=== PATIENT | male | born 1975 | race Caucasian/White ===

== ENCOUNTER 2024-04-22 10:05 | Emergency (ER) | payer SELFPAY ==
--- OUTSIDE RECORDS SUMMARY | 2024-04-22 10:08 | XMS REPORT | Continuity of Care Document ---
Author Name Unknown Address [address] [facility]. [address] [place] [address] [facility] thconnect Address [address] [facility]. [address] [place] [address] Care Team Providers Care Welfare Adviser Name Role Phone PCP, PATIENT DOES NOT HAVE A Primary Care Physic clau Unavailable Conrad FRANCO Attending Clinician Unavailable Allergies, Adverse Reactions, Alerts Allergy Name Allergy Type Status Severity Reaction(s) Onset Date Inactive Date Treating Clinician Comments Source [facility] Drug Class Active Anaphylaxis 2016-06 00:00: 00 [facility] Encounters Start Date/Time End Date/Time Encounter Type Admission Type Attending Clinicians Care Facility Care Department Encounter ID Source 2017-05-19 16:07:12 2017-05-19 20:16:00 Emergency X Conrad FRANCO [facility] ERT [id number] [facility]
[2024-04-22] MEDS ORDERED: GABAPENTIN 300 MG CAP ONE (10:25)
[2024-04-22] MEDS ORDERED: KETOROLAC 30 MG/ML INJ ONE (10:25)
--- NOTE | 2024-04-22 11:02 | ER ---
Nurse's Notes [facility] Name: Adrián Dennis Jr Age: 48 yrs Sex: Male : 1975 Arrival Date: 04/22/2024 Time: 10:05 Bed 17 Private MD: Diagnosis: Dental caries, unspecified Presentation: 04/22 10:15 Chief complaint: Patient states: Upper jaw tooth pain. Coronavirus screen: Client ll1 denies travel out of the [place] in the last 14 days. At this time, the client does not indicate any symptoms associated with coronavirus-19. Ebola Screen: Patient denies travel to an Ebola-affected area in the 21 days before illness onset. Initial Sepsis Screen: Does the patient meet any 2 criteria? No. Patient's initial sepsis screen is negative. Does the patient have a suspected source of infection? No. Patient's initial sepsis screen is negative. Risk Assessment: Do you want to hurt yourself or someone else? Patient reports no desire to harm self or others. 10:15 Method Of Arrival: Ambulatory 1 10:15 Acuity: DAI 4 ll1 10:17 Onset of symptoms was April 21, 2024. 1 Historical: - Allergies: 10:16 PENICILLINS; ll1 10:16 all cillins; ll1 - PMHx: 10:18 Diverticulitis; ll1 - PSHx: 10:18 None; ll1 - Immunization history:: Adult Immunizations up to date. - Infectious Disease History:: Denies. - Social history:: Smoking status: Patient reports the use of cigarette tobacco products, smokes one pack cigarettes per day. - Family history:: not pertinent. - Hospitalizations: : No recent hospitalization is reported. Screenin:18 [facility] ED Fall Risk Assessment (Adult) History of falling in the last 3 months, db including since admission No falls in past 3 months (0 pts) Confusion or Disorientation No (0 pts) Intoxicated or Sedated No (0 pts) Impaired Gait No (0 pts) Mobility Assist Device Used No (0 pt) Altered Elimination No (0 pt) Score/Fall Risk Level 0 - 2 = Low Risk Oriented to surroundings, Maintained a safe environment. Abuse screen: Denies threats or abuse. Denies injuries from another. Nutritional screening: No deficits noted. Nutritional screening: No deficits noted. Tuberculosis screening: No symptoms or risk factors identified. Assessment: 11:18 Reassessment: Patient appears in no apparent distress at this time. Patient and/or db family updated on plan of care and expected duration. Pain level reassessed. Patient is alert, oriented x 3, equal unlabored respirations, skin warm/dry/pink. General: Appears in no apparent distress. comfortable, Behavior is calm, cooperative. Pain: Complains of pain in mouth. Neuro: Level of Consciousness is awake, alert, obeys commands, Oriented to person, place, time, situation. Respiratory: Airway is patent Respiratory effort is even, unlabored, Respiratory pattern is regular, symmetrical. EENT: Dental caries noted in MULTIPLE. Vital Signs: 10:17 BP 149 / 103; Pulse 78; Resp 17; Temp 98.2; Pulse Ox 99% ; Weight 80.29 kg; Height 6 ll1 ft. 0 in. ; Pain 10/10; 10:17 Body Mass Index 24.01 (80.29 kg, 182.88 cm) ll1 10:17 Pain Scale: Adult ll1 ED Course: 10:07 Patient arrived in ED. im 10:09 Navid Barrios MD is Attending Physician. rn 10:16 Triage completed. ll1 10:16 Arm band placed on Patient placed in an exam room, on a stretcher. ll1 10:20 Janneth Bai, JOEL is Primary Nurse. db 11:18 Patient has correct armband on for positive identification. Bed in low position. Call db light in reach. Side rails up X 1. Provided Education on: DISCHARGE. Pillow given. 11:18 No provider procedures requiring assistance completed. Patient did not have IV access db during this emergency room visit. Administered Medications: 10:48 Drug: Ketorolac IM 30 mg IM once Route: IM; Site: right deltoid; db 11:20 Follow up: Response: No adverse reaction db 10:48 Drug: Gabapentin PO 300 mg PO once Route: PO; db 11:00 Follow up: Response: No adverse reaction db Medication: 11:18 VIS not applicable for this client. db Outcome: 11:01 Discharge ordered by . rn 11:18 Discharged to home ambulatory, db 11:18 Condition: stable 11:18 Discharge instructions given to patient, Instructed on discharge instructions, follow up and referral plans. Prescriptions given X 2, 11:20 Patient left the ED. db Signatures: Navid Barrios MD MD rn Lewis, Lynsay, RN RN 1 Janneth Bai RN RN db Sumi Banda Corrections: (The following items were deleted from the chart) 10:18 10:16 Social history: Smoking status: Patient denies any tobacco usage or history of. ll1 ll1 10:19 10:17 Pulse 78bpm; Resp 17bpm; Pulse Ox 99%; 80.29 kg; Height 6 ft. 0 in.; BMI: 24.0; ll1 Pain 03/25, Adult; ll1
--- NOTE | 2024-04-22 11:02 | EDPHYS ---
Physician Documentation [facility] Name: Adrián Dennis Jr Age: 48 yrs Sex: Male : 1975 Arrival Date: 04/22/2024 Time: 10:05 Bed 17 Private MD: ED Physician Navid Barrios HPI: 04/22 10:59 This 48 yrs old Male presents to ER via Ambulatory with complaints of Toothache. rn 10:59 The patient presents with pain. Onset: The symptoms/episode began/occurred yesterday. rn Modifying factors: The symptoms are alleviated by nothing, the symptoms are aggravated by chewing, food. Severity of symptoms: At their worst the symptoms were moderate, in the emergency department the symptoms are unchanged. The patient has experienced similar episodes in the past. Patient reports pain to right upper tooth. Has chronic dental problems but worse yesterday after eating candy. Has not seen a dentist. No fever or chills.. Historical: - Allergies: 10:16 PENICILLINS; ll1 10:16 all cillins; ll1 - PMHx: 10:18 Diverticulitis; ll1 - PSHx: 10:18 None; ll1 - Immunization history:: Adult Immunizations up to date. - Infectious Disease History:: Denies. - Social history:: Smoking status: Patient reports the use of cigarette tobacco products, smokes one pack cigarettes per day. - Family history:: not pertinent. - Hospitalizations: : No recent hospitalization is reported. ROS: 10:59 Constitutional: Negative for fever, chills, and weight loss, ENT: Positive for dental rn pain Exam: 10:59 Constitutional: This is a well developed, well nourished patient who is awake, alert, rn and in no acute distress. ENT: Poor dentition with right upper teeth cavities, no evidence of oral abscess or gingival swelling noted. Vital Signs: 10:17 BP 149 / 103; Pulse 78; Resp 17; Temp 98.2; Pulse Ox 99% ; Weight 80.29 kg; Height 6 ll1 ft. 0 in. ; Pain 10; 10:17 Body Mass Index 24.01 (80.29 kg, 182.88 cm) ll1 10:17 Pain Scale: Adult ll1 MDM: 10:09 Medical Screening Exam initiated rn 10:59 Differential diagnosis: dental caries, dental abscess. Data reviewed: vital signs, rn nurses notes, and as a result, I will discharge patient. Counseling: I had a detailed discussion with the patient and/or guardian regarding the historical points, exam findings, and any diagnostic results supporting the discharge/admit diagnosis, the need for outpatient follow up, to return to the emergency department if symptoms worsen or persist or if there are any questions or concerns that arise at home. Special discussion: I discussed with the patient/guardian in detail that at this point there is no indication for admission to the hospital. It is understood, however, that if the symptoms persist or worsen the patient needs to return immediately for re-evaluation. Based on the history and exam findings, there is no indication for further emergent testing or inpatient evaluation. I discussed with the patient/guardian the need to see a dentist for further evaluation of the symptoms. Administered Medications: 10:48 Drug: Ketorolac IM 30 mg IM once Route: IM; Site: right deltoid; db 11:20 Follow up: Response: No adverse reaction db 10:48 Drug: Gabapentin PO 300 mg PO once Route: PO; db 11:00 Follow up: Response: No adverse reaction db Disposition Summary: 04/22/24 11:01 Discharge Ordered Notes: Location: Home rn Problem: an acute exacerbation rn Symptoms: have improved rn Condition: Stable rn Diagnosis - Dental caries, unspecified rn Followup: rn - With: Private Physician - When: As needed - Reason: Recheck today's complaints, Re-evaluation by your physician Discharge Instructions: - Discharge Summary Sheet rn - Dental Caries, Adult rn - Dental Pain rn Forms: - Medication Reconciliation Form rn - Antibiotic automatic pattern edger - Prescription Opioid Use rn - Patient Portal Instructions rn - Leadership Thank You Letter rn Prescriptions: - Clindamycin HCl 300 mg Oral Capsule - take 1 capsule ORAL route every 6 hours for 10 days; 40 capsule; Refills: 0, rn Product Selection Permitted - Tramadol 50 mg Oral Tablet - take 1 tablet ORAL route every 8 hours as needed; 12 tablet; Refills: 0, rn Product Selection Permitted Signatures: Nvaid Barrios MD MD rn Lewis, Lynsay, RN RN ll1 Janneth Bai RN RN db Corrections: (The following items were deleted from the chart) 10:18 10:16 Social history: Smoking status: Patient denies any tobacco usage or history of. ll1 ll1
[2024-04-22 11:28] VITALS: BP 149/103; TEMP 98.2; O2SAT 99
== END 2024-04-22 11:20 | disposition home or self-care (01) ==
LOC: ER 10:05
DX: K02.9 Dental caries, unspecified (principal)
CPT/HCPCS: 96372; 99284

== ENCOUNTER 2025-01-28 10:51 | Inpatient (IN) | payer SELFPAY ==
--- OUTSIDE RECORDS SUMMARY | 2025-01-28 10:54 | XMS REPORT | Continuity of Care Document ---
Author Name Unknown Address [address] [facility] [address] [place] [address] [facility] Address [address] [facility]. [address] [place] [address] Care Team Providers Care Otr Owner Operator Name Role Phone PCP, PATIENT DOES NOT HAVE A Primary Care Physic clau Unavailable Conrad FRANCO Attending Clinician Unavailable Allergies, Adverse Reactions, Alerts Allergy Name Allergy Type Status Severity Reaction(s) Onset Date Inactive Date Treating Clinician Comments Source [facility] INS Drug Class Active Anaphylaxis 2016-06 00:00: 00 [facility] Encounters Start Date/Time End Date/Time Encounter Type Admission Type Attending Clinicians Care Facility Care Department Encounter ID Source 2017-05-19 16:07:12 2017-05-19 20:16:00 Emergency X Conrad FRANCO [facility] ERT [id number] [facility]
[2025-01-28] MEDS ORDERED: ONDANSETRON 4 MG/2 ML VIAL ONE (10:57)
[2025-01-28] MEDS ORDERED: ASPIRIN 81 MG CHEWABLE TABLET ONE (10:57)
[2025-01-28] MEDS ORDERED: MORPHINE 4 MG/ML SYR ONE (10:57)
[2025-01-28] MEDS ORDERED: CLOPIDOGREL 75 MG TABLET ONE ×2 (11:32→13:57)
[2025-01-28] MEDS ORDERED: HEPARIN 5000 UNIT/ML 1 ML VIAL ONE ×2 (11:32→13:57)
[2025-01-28 11:52] LABS: Absolute Lymphocytes (CBC) 2.7 K/uL (0.7-4.9); Hematocrit 45.2 % (39.6-49.0); Hemoglobin 15.6 g/dL (13.6-17.9); MCH 32.1 pg (27.0-35.0); MCHC 34.5 g/dL (32.0-36.0); MCV 93.1 fL (80-100); MPV 8.0 fL (7.6-11.3); Nucleated RBC Absolute Count 0.0 (0-0); Nucleated Red Blood Cells % 0.0 % (0-0); RBC Red Blood Cell Count 4.85 M/uL (4.33-5.43); White Blood Count 9.60 thou/uL (4.3-10.9)
--- NOTE | 2025-01-28 12:05 | RAD REPORT ---
EXAM: Chest Single View HISTORY: 49 years Male CHEST PAIN COMPARISON: No prior exams FINDINGS: LUNGS/PLEURA: The lungs are clear. No pleural effusions or pneumothorax. No pulmonary edema. CARDIAC/MEDIASTINUM: The cardiac silhouette is within normal limits. UPPER ABDOMEN: No significant abnormality. BONES: No acute abnormality. LINES/TUBES/OTHER: N/A IMPRESSION: No evidence of acute cardiopulmonary disease.
[2025-01-28 12:13] LABS: Anion Gap 9.8 mEq/L (5.0-15.0); BUN Blood Urea Nitrogen 16.0 mg/dL (7-18); Glucose Level 98.0 mg/dL (74-106); NT PRO-BNP 68.0 pg/mL (<125); Potassium 3.8 mEq/L (3.5-5.1)
[2025-01-28 12:16] LABS: Troponin High Sensitivity 135.8 pg/mL (<58.9)
[2025-01-28] MEDS ORDERED: HEPARIN/D5W 25,000 UNIT/500 ML BAG IV ONE (12:22)
--- NOTE | 2025-01-28 13:29 | ER ---
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 Coronavirus kc6 screen: At this time, the client does not indicate any symptoms associated with coronavirus-19. Ebola Screen: No symptoms or risks identified at this time. Initial Sepsis Screen: Does the patient meet any 2 criteria? No. Patient's initial sepsis screen is negative. Does the patient have a suspected source of infection? No. Patient's initial sepsis screen is negative. Risk Assessment: Do you want to hurt yourself or someone else? Patient reports no desire to harm self or others. Onset of symptoms was January 28, 2025. 10:58 Method Of Arrival: Wheelchair kc6 10:58 Acuity: DAI 2 kc6 Historical: - Allergies: 10:59 PENICILLINS; kc6 10:59 all cillins; kc6 - Home Meds: 10:59 None [Active]; kc6 - PMHx: 10:59 Diverticulitis; kc6 - PSHx: 10:59 None; kc6 - Immunization history:: Adult Immunizations up to date. - Infectious Disease History:: Denies. - Social history:: Smoking status: Patient reports the use of cigarette tobacco products, smokes two packs cigarettes per day. Screenin:00 [facility] ED Fall Risk Assessment (Adult) History of falling in the last 3 months, kc6 including since admission No falls in past 3 months (0 pts) Confusion or Disorientation No (0 pts) Intoxicated or Sedated No (0 pts) Impaired Gait No (0 pts) Mobility Assist Device Used No (0 pt) Altered Elimination No (0 pt) Score/Fall Risk Level 0 - 2 = Low Risk Oriented to surroundings. Abuse screen: Denies threats or abuse. Denies injuries from another. Nutritional screening: No deficits noted. Tuberculosis screening: No symptoms or risk factors identified. Assessment: 11:00 General: Appears in no apparent distress. uncomfortable, well groomed, well developed, kc6 Behavior is calm, cooperative, appropriate for age. Pain: Complains of pain in anterior aspect of left upper chest and left breast Pain does not radiate. Pain currently is 2 out of 10 on a pain scale. at worst was 10 out of 10 on a pain scale. Quality of pain is described as sharp, Pain began suddenly, 30 min ago. Is intermittent. Neuro: Level of Consciousness is awake, alert, obeys commands, Oriented to person, place, time, situation, Appropriate for age. Cardiovascular: Reports chest pain, Capillary refill < 3 seconds Rhythm is regular. Respiratory: Airway is patent Trachea midline Respiratory effort is even, unlabored, Respiratory pattern is regular, symmetrical. GI: No signs and/or symptoms were reported involving the gastrointestinal system. : No signs and/or symptoms were reported regarding the genitourinary system. EENT: No signs and/or symptoms were reported regarding the EENT system. Derm: No signs and/or symptoms reported regarding the dermatologic system. Skin is intact, is healthy with good turgor, Skin is pink, warm \T\ dry. Musculoskeletal: No signs and/or symptoms reported regarding the musculoskeletal system. Circulation, motion, and sensation intact. Range of motion: intact in all extremities. 11:47 Reassessment: Patient denies pain at this time. Patient states feeling better. Patient kc6 states symptoms have improved. 12:44 Reassessment: Patient appears in no apparent distress at this time. No changes from af3 previously documented assessment. Patient and/or family updated on plan of care and expected duration. Pain level reassessed. Patient is alert, oriented x 3, equal unlabored respirations, skin warm/dry/pink. 13:44 Reassessment: Patient appears in no apparent distress at this time. No changes from kc6 previously documented assessment. Patient and/or family updated on plan of care and expected duration. Pain level reassessed. Patient is alert, oriented x 3, equal unlabored respirations, skin warm/dry/pink. Vital Signs: 10:58 BP 146 / 96; Pulse 80; Resp 16 S; Temp 97.9(O); Weight 79.38 kg (R); Height 6 ft. 0 in. kc6 (R); Pain 2/10; 11:47 BP 139 / 99; Pulse 78; Resp 14 S; Pulse Ox 96% on R/A; Pain 0/10; kc6 12:11 BP 117 / 93; Pulse 69; Resp 15 S; Pulse Ox 96% on R/A; Pain 0/10; kc6 12:44 BP 137 / 94; Pulse 68; Resp 17; Pulse Ox 95% on R/A; Pain 0/10; af3 10:58 Body Mass Index 23.73 (79.38 kg, 182.88 cm) kc6 10:58 Pain Scale: Adult kc6 11:47 Pain Scale: Adult kc6 12:11 Pain Scale: Adult kc6 12:44 Pain Scale: Adult af3 ED Course: 10:53 Patient arrived in ED. al6 10:54 Golden Burks FNP-C [facility]. dr5 10:54 Tonny Wilson MD is Attending Physician. dr5 10:57 Arm band placed on Patient placed in an exam room, on a stretcher. ll1 10:58 Gertrudis Little, JOEL is Primary Nurse. kc6 10:59 Triage completed. kc6 10:59 EKG completed in triage. Results shown to MD. kc6 11:00 Patient has correct armband on for positive identification. Bed in low position. Call [facility] light in reach. Side rails up X 1. panel monitor on. Pulse ox on. NIBP on. Door closed. Noise minimized. Lights dimmed. Pillow given. Verbal reassurance given. 11:00 Patient maintains SpO2 saturation greater than 95% on room air. kc6 11:00 Inserted saline lock: 20 gauge in right antecubital area, using aseptic technique. kc6 Inserted saline lock: 18 gauge in left forearm, using aseptic technique. Blood collected. Flushed with 10 mL NS. 12:01 XRAY Chest (1 view) In Process Unspecified. EDMS 13:28 Prince Velazquez MD is Hospitalizing Provider. dr5 14:05 No provider procedures requiring assistance completed. Patient admitted, IV remains in kc6 place. Administered Medications: 11:12 Drug: Aspirin PO Chewable Tablet 324 mg PO once; 81 mg tablets x 4 Route: PO; kc6 11:50 Follow up: Response: No adverse reaction kc6 11:13 Drug: morphine IVP or IV 4 mg IVP once over 4 mins Route: IVP; Infused Over: 4 mins; kc6 Site: left antecubital; 11:47 Follow up: Response: No adverse reaction; Pain is decreased; RASS: Alert and Calm (0) kc6 11:13 Drug: Ondansetron IVP 4 mg IVP once; over 2 minutes Route: IVP; Site: left antecubital; kc6 11:47 Follow up: Response: No adverse reaction kc6 11:47 Drug: Clopidogrel PO 300 mg PO once Route: PO; kc6 12:20 Follow up: Response: No adverse reaction kc6 11:47 Drug: Heparin (ND-Bolus No thrombolytic) - HEParin IVP 60 units/kg IVP once; Max 5000 kc6 units {Co-Signature: af3 (Adela Wilson RN).} Route: IVP; Site: left antecubital; 12:20 Follow up: Response: No adverse reaction kc6 12:29 Drug: Heparin (ND Drip) 12 units/kg/hr - ([place] [address] units, D5W IV 500 ml) IV at kc6 calculated rate Per protocol; Max initial rate 1000 units/hr {Co-Signature: me1 (Kusum Rogers RN).} Route: IV; Rate: calculated rate; Site: left antecubital; 14:04 Follow up: Response: No adverse reaction; IV Status: Infusion continued upon admission; kc6 IV Intake: 500ml Medication: 14:06 VIS not applicable for this client. kc6 Intake: 14:04 IV: 500ml; Total: 500ml. kc6 Outcome: 13:28 Decision to Hospitalize by Provider. dr5 14:05 Admitted to Patrol Lady accompanied by nurse, via stretcher, on monitor, with chart, kc6 Report called to Cody Alexandra RN 14:05 Condition: stable 14:05 Instructed on the need for admit, 14:06 Patient left the ED. kc6 Signatures: Dispatcher [employer] EDMS Reinaldo Samuels RN RN ll1 Gertrudis Little RN RN kc6 Fry, Ashley, RN RN af3 Golden Burks, MARS-C PIPELAYING FITTER-[id number] Edith Mckeon Ashley RN af3 Kusum Rogers RN me1 Corrections: (The following items were deleted from the chart) 11:48 11:00 Initial lab(s) drawn, by ED staff, sent to lab. kc6 kc6
--- NOTE | 2025-01-28 13:29 | EDPHYS ---
Physician Documentation [facility] Name: Adrián Dennis Jr Age: 49 yrs Sex: Male : 1975 Arrival Date: 01/28/2025 Time: 10:51 Bed 16 Private MD: ED Physician Tonny Wilson HPI: 01/28 11:09 This 49 yrs old Male presents to ER via Wheelchair with complaints of Chest dr5 Pain. 11:09 Onset: The symptoms/episode began/occurred acutely. Patient is a 49-year-old male with dr5 history of diverticulitis coming in with sudden onset of left-sided chest pain that improved after 20 minutes. Patient reports he was at work when the pain started. Patient reports eating a taco this morning for breakfast. Patient also reports he is a 2 pack a day smoker. Patient denies nausea, vomiting, diarrhea.. 11:24 Onset: The symptoms/episode began/occurred at 10:30. dr5 Historical: - Allergies: 10:59 PENICILLINS; kc6 10:59 all cillins; kc6 - Home Meds: 10:59 None [Active]; kc6 - PMHx: 10:59 Diverticulitis; kc6 - PSHx: 10:59 None; kc6 - Immunization history:: Adult Immunizations up to date. - Infectious Disease History:: Denies. - Social history:: Smoking status: Patient reports the use of cigarette tobacco products, smokes two packs cigarettes per day. ROS: 11:09 Constitutional: as per hpi dr5 Exam: 10:59 ECG was reviewed by the Attending Physician. dr5 11:09 Constitutional: This is a well developed, well nourished patient who is awake, alert, dr5 and in no acute distress. Head/Face: Normocephalic, atraumatic. ENT: Nares patent. No nasal discharge, no septal abnormalities noted. Tympanic membranes are normal and external auditory canals are clear. Oropharynx with no redness, swelling, or masses, exudates, or evidence of obstruction, uvula midline. Mucous membranes moist. Neck: Trachea midline, no thyromegaly or masses palpated, and no cervical lymphadenopathy. Supple, full range of motion without nuchal rigidity, or vertebral point tenderness. No Meningismus. Chest/axilla: Normal chest wall appearance and motion. Nontender with no deformity. No lesions are appreciated. Cardiovascular: Regular rate and rhythm with a normal S1 and S2. Normal PMI, no JVD. No pulse deficits. Patient reports mild chest pain at this time Respiratory: Lungs have equal breath sounds bilaterally, clear to auscultation. No rales, rhonchi or wheezes noted. No increased work of breathing, no retractions or nasal flaring. Back: No spinal tenderness. No costovertebral tenderness. Full range of motion. Skin: Warm, dry with normal turgor. Normal color with no rashes, no lesions, and no evidence of cellulitis. MS/ Extremity: Pulses equal, no cyanosis. Neurovascular intact. Full, normal range of motion. Neuro: Awake and alert, GCS 15, oriented to person, place, time, and situation. Cranial nerves II-XII grossly intact. Motor strength 5/5 in all extremities. Sensory grossly intact. Cerebellar exam normal. Normal gait. Vital Signs: 10:58 BP 146 / 96; Pulse 80; Resp 16 S; Temp 97.9(O); Weight 79.38 kg (R); Height 6 ft. 0 in. kc6 (R); Pain 2/10; 11:47 BP 139 / 99; Pulse 78; Resp 14 S; Pulse Ox 96% on R/A; Pain 0/10; kc6 12:11 BP 117 / 93; Pulse 69; Resp 15 S; Pulse Ox 96% on R/A; Pain 0/10; kc6 12:44 BP 137 / 94; Pulse 68; Resp 17; Pulse Ox 95% on R/A; Pain 0/10; af3 10:58 Body Mass Index 23.73 (79.38 kg, 182.88 cm) kc6 10:58 Pain Scale: Adult kc6 11:47 Pain Scale: Adult kc6 12:11 Pain Scale: Adult kc6 12:44 Pain Scale: Adult af3 MDM: 10:54 Medical Screening Exam initiated dr5 11:11 ED course: I reviewed EKG with concerns for ST depression and took to Dr. Wilson to dr5 evaluate as well. Dr. Wilson took a picture and sent to Dr. Craven (Cardiology) immediately. Will give patient 4 chewable ASA, morphine, and zofran for pain and obtain labs.. 12:12 Awaiting: labs results, Herber notified and pending troponin. ASA, Plavix, and Heparin dr5 bolus given. No chest pain at this time.. 12:24 ED course: Explained what is happening to patient. No chest pain at this time. dr5 13:30 Differential diagnosis: viral Infection, STEMI, NSTEMI, congestive heart failure. Data dr5 reviewed: vital signs, nurses notes, lab test result(s), cardiac enzymes, troponin i, CBC, white blood cell count, hemoglobin, hematocrit, platelets, electrolytes, sodium, potassium, chloride, serum bicarbonate, BUN, creatinine, serum glucose, EKG, radiologic studies, plain films, I have discussed the patient's presentation/case with the attending Emergency Department Physician;. Consideration of Admission/Observation Patient was admitted/placed on observation. Management of patient was discussed with the following: Hospitalist: Dr. Velazquez. Technology Education Teacher: Dr. Craven. I considered the following discharge prescriptions or medication management in the emergency department I discussed and recommended Over The Counter medications, Medications were administered in the Emergency Department. See MAR. Care significantly affected by the following Social Determinants of Health: Poor access to healthcare and/or lack of insurance, Poor access to transportation, Problems related to employment. Scoring Tools HEART Score: History: ECG: Age: Risk Factors: 1 or 2 risk factors (1), Troponin: Total Score = 8. Counseling: I had a detailed discussion with the patient and/or guardian regarding the historical points, exam findings, and any diagnostic results supporting the discharge/admit diagnosis, the presence of at least one elevated blood pressure reading (>120/80) during this emergency department visit, lab results, radiology results, the need for further work-up and treatment in the hospital, to return to the emergency department if symptoms worsen or persist or if there are any questions or concerns that arise at home. Medication response: Heparin, morphine, Zofran. Response to treatment: the patient's symptoms have resolved after treatment, the patient's condition has returned to base line, the patient is now symptom free. Special discussion: Based on the patient's history, exam, and Dx evaluation, there is no indication for emergent intervention or inpatient Tx. It is understood by the patient/guardian that if the Sx's persist or worsen they need to return immediately for re-evaluation. ED course: Spoke with Dr. Craven who recommended patient to have cardiac cath today. Will admit to hospitalist as well.. 01/28 11:04 Order name: Basic Metabolic Panel; Complete Time: 12:01/28 11:04 Order name: CBC with Diff; Complete Time: 12:01/28 11:04 Order name: NT PRO-BNP; Complete Time: 12:01/28 11:04 Order name: Troponin HS; Complete Time: 12:01/28 11:30 Order name: Ptt, Activated; Complete Time: 12:04 kc6 01/28 11:04 Order name: XRAY Chest (1 view); Complete Time: 12:01/28 11:04 Order name: Cardiac monitoring; Complete Time: 11:01/28 11:04 Order name: EKG - Nurse/Tech; Complete Time: :01/28 11:04 Order name: IV Saline Lock; Complete Time: :01/28 11:04 Order name: Labs collected and sent; Complete Time: 11:01/28 11:04 Order name: O2 Per Protocol; Complete Time: :01/28 11:04 Order name: O2 Sat Monitoring; Complete Time: 11: dr5 EC:59 Rate is 73 beats/min. Rhythm is regular. QRS Gibson is Normal. IN interval is normal at dr5 164 msec. QRS interval is normal at 100 msec. QT interval is normal at 414 msec. Clinical impression: Normal ECG and Concern for ST depression ischemia in V1, aVL, V4, and V5. Administered Medications: 11:12 Drug: Aspirin PO Chewable Tablet 324 mg PO once; 81 mg tablets x 4 Route: PO; kc6 11:50 Follow up: Response: No adverse reaction kc6 11:13 Drug: morphine IVP or IV 4 mg IVP once over 4 mins Route: IVP; Infused Over: 4 mins; kc6 Site: left antecubital; 11:47 Follow up: Response: No adverse reaction; Pain is decreased; RASS: Alert and Calm (0) kc6 11:13 Drug: Ondansetron IVP 4 mg IVP once; over 2 minutes Route: IVP; Site: left antecubital; kc6 11:47 Follow up: Response: No adverse reaction kc6 11:47 Drug: Clopidogrel PO 300 mg PO once Route: PO; kc6 12:20 Follow up: Response: No adverse reaction kc6 11:47 Drug: Heparin (RI-Bolus No thrombolytic) - HEParin IVP 60 units/kg IVP once; Max 5000 kc6 units {Co-Signature: af3 (Adela Wilson RN).} Route: IVP; Site: left antecubital; 12:20 Follow up: Response: No adverse reaction kc6 12:29 Drug: Heparin (RI Drip) 12 units/kg/hr - ([place] [address] units, D5W IV 500 ml) IV at kc6 calculated rate Per protocol; Max initial rate 1000 units/hr {Co-Signature: me1 (Kusum Rogers RN).} Route: IV; Rate: calculated rate; Site: left antecubital; 14:04 Follow up: Response: No adverse reaction; IV Status: Infusion continued upon admission; kc6 IV Intake: 500ml Disposition Summary: 01/28/25 13:28 Hospitalization Ordered Notes: Hospitalization Status: Inpatient Admission dr5 Provider: Prince matt Velazquez Location: Telemetry/MedSurg (Inpatient) dr5 Problem: new dr5 Symptoms: are unchanged dr5 Bed/Room Type: Standard dr5 Room Assignment: dr5 Condition: Serious(01/28/25 13:28) dr5 Diagnosis - Subsequent non-ST elevation (NSTEMI) myocardial infarction dr5 - Chest pain, unspecified dr5 Forms: - Medication Reconciliation Form dr5 - SBAR form dr5 - Leadership Thank You Letter dr5 Addendum: 02/01/2025 14:02 Co-signature as Attending Physician, Tonny Wilson MD I agree with the assessment and c linares plan of care. Signatures: Dispatcher [employer] Tonny Smith MD MD cha Campbell, Kaitlyn RN RN kc6 Golden Burks, MARS-C TAPE SEWING MACHINE OPERATOR-Cdr5 Adela Wilson RN af3 Kusum Rogers RN me1 Corrections: (The following items were deleted from the chart) 01/28 11:04 11:04 BASIC METABOLIC PANEL+C.LAB.BRZ ordered. EDMS EDMS 11:04 11:04 CBC+H.LAB.BRZ ordered. EDMS EDMS 11:04 11:04 PROBNP+C.LAB.BRZ ordered. EDMS EDMS 11:04 11:04 Troponin High Sensitivity+C.LAB.BRZ ordered. EDMS EDMS 11:04 11:04 Chest Single View+RAD.RAD.BRZ ordered. EDMS EDMS 11:30 11:30 PTT, ACTIVATED+COAG.LAB.BRZ ordered. EDMS EDMS 13: 13:[address]5 dr5
[2025-01-28] MEDS: MIDAZOLAM HCL 2 MG/2 ML INJ ONE (13:30)
[2025-01-28] MEDS: FENTANYL CITR 100 MCG/2 ML ONE (13:30)
[2025-01-28] MEDS: NA CHLORIDE 0.9% 500 ML ONE (13:31)
[2025-01-28] MEDS ORDERED: TICAGRELOR 90 MG TABLET PO ONE (13:57)
[2025-01-28] MEDS ORDERED: HEPARIN 10,000 UNIT/10 ML VIAL IV ONE (13:57)
[2025-01-28] MEDS ORDERED: HEPA 1000U/500MLS 2,000 UNIT/1,000 ML BAG IV ONE (13:57)
[2025-01-28] MEDS ORDERED: VERAPAMIL HCL 10 MG/4 ML VIAL IV ONE (13:57)
[2025-01-28] MEDS ORDERED: ATROPINE SULF 1 MG/10 ML SYR IV ONE (13:57)
[2025-01-28] MEDS ORDERED: NITROGLYCERIN 0.4 MG/TAB SL PRN (14:14)
[2025-01-28] MEDS ORDERED: ONDANSETRON 4 MG/2 ML VIAL IV PRN (14:14)
--- NOTE | 2025-01-28 14:24 | P.HP ---
Certification for Inpatient Patient admitted to: Inpatient With expected LOS: >2 Midnights Practitioner: I am a practitioner with admitting privileges, knowledge of patient current condition, hospital course, and medical plan of care. Services: Services provided to patient in accordance with Admission requirements found in Title 42 Section 412.3 of the Code of Federal Regulations Patient History Date of Service: 01/28/25 Reason for admission: chest pain History of Present Illness: Patient is a 57-year-old male who presented to the left-sided chest pain that started 20 minutes prior to admission. He has no significant past medical history except he smokes 2 pack of cigarettes a day. 19-year-old G2, P1 at 39. Patient taking to Claims Director shortly after presentation for NSTEMI. Allergies Penicillins Allergy (Severe, Verified 01/28/25 15:07) Anaphylaxis Physical Examination - Physical Exam General: Alert, In no apparent distress, Cooperative HEENT: Atraumatic, Normocephalic Respiratory: Clear to auscultation bilaterally, Normal air movement Cardiovascular: No edema, Normal pulses, Regular rate/rhythm, Normal S1 S2 Neurological: Normal speech - Studies Laboratory Data (last 24 hrs) 01/28/25 01/28/25 01/28/25 11:42 11:42 11:42 WBC 9.60 Hgb 15.6 Hct 45.2 Plt Count 292 APTT 32.5 Sodium 139 Potassium 3.8 BUN 16 Creatinine 0.80 Glucose 98 Assessment and Plan - Plan Assessment 49-year-old with a past medical history of tobacco smoking being admitted for NSTEMI after presented with chest pain. His first troponin was 139. EKG revealed ST depression from V3-V5. Cardiology has been notified and is planning to take the patient to the Claims Director. NSTEMI Tobacco smoking Plan: Patient is status post PCI Pending operative report He is in the ICU for TR band management Continue to treat per ACS protocol: Aspirin, atorvastatin, heparin drip Obtain a 2D echo Check lipid panel and hemoglobin A1c Monitor clinical progress - Advance Directives Does patient have a Living Will: No Does patient have a Durable POA for Healthcare: No
[2025-01-28] MEDS: NA CHLORIDE 0.9% 1,000 ML IV SCH (16:32)
--- NOTE | 2025-01-28 17:36 | OP ---
Date of Procedure: 01/28/2025 Surgeon: NEHEMIAS RUBIN Procedures Performed: 1. Selective coronary angiogram. 2. PCI of severe proximal diagonal 1 branch which is a very large branch and it had an ulcerated plaq ue with thrombus 99% stenosed, status post successful PCI. Indication: Acute [id number] myocardial infarction. Access: Right radial artery 6-Iraqi closed with TR band. Complications: None. Bleeding: Less than 50 mL. Total Sedation Time: None. We did not give sedation. Blood pressure was on the low side. Complications: None. Description Of Procedure: After risks, benefits, and alternatives were explained, the patient agreed to procedure and signed informed consent. The patient was brought into [facility], prepped and draped in sterile fashion. Then, I accessed the right radial artery using pediat douglas micropuncture kit, ultrasound guidance, fluoroscopy, placed 6-Iraqi slender sheath and took 5-Fr ench [place] 4.0 catheter into the aortic root over a J-wire across the aortic valve, measured the LVED P. Pullback did not record any gradient, then engaged the left main, took standard views, and then i n the RCA, took standard views, and exchanged for 6-Iraqi EBU3.5 guide and engaged the left main usi ng this guide and gave systemic heparin to assure ACT level above 250, and loaded him with Brilinta 1 80, and he has already taken aspirin in the emergency room. Took Runthrough wire into the diagonal b ranch and placed it distally and then I took a 3.5 x 12 mm Synergy drug-eluting stent and did direct stenting to avoid breaking through the thrombus and the stent expanded very well and EMERY-3 flow was present at the end of procedure, removed the wire. Final angiogram was satisfactory. I removed the catheter and the sheath and placed TR band with good hemostasis. Findings: 1. Left main; large and normal. 2. LAD; very large vessel. Proximal segment is normal. Diagonal 1 branch is very large. Proximally , there was 99% stenosis that was of thrombus, was ulcerative with a ruptured plaque, status post suc cessful PCI. Then in the mid LAD after the D1 takeoff, there is about 30% stenosis. Rest of the LAD is normal and after the culprit region in diagonal 1 in the mid to distal part of it, there was abou t focal 40% stenosis. 3. Left circumflex; left circumflex artery is moderate size and no significant disease. 4. RCA; large and dominant, proximal 30%, distal 30%, and PDA has ostial 50%. 5. LVEDP is elevated at 23 mmHg. Conclusions: 1. Severe proximal diagonal 1 branch which is a very large vessel and stenosis due to acute thrombus forming due to a plaque rupture, status post successful PCI, and I recommend Brilinta 90 mg twice a d ay and baby aspirin 81 mg daily, atorvastatin 80 mg q.h.s., and 2 hours after removing TR band to put him on heparin drip for through the weekend, and encouraged to quit smoking. 2. Mild to moderate coronary artery disease elsewhere. Recommendation: As outlined above. Aspirin, Brilinta, high-dose statin, and smoking cessation. SR/MODL Voice ID: [id number] Report ID: [id number]
[2025-01-28 19:37] VITALS: BMI 23.7
[2025-01-28] MEDS: ATORVASTATIN 80 MG TAB PO SCH (20:12)
[2025-01-28] MEDS: DIPHENHYDRAMINE 25 MG TAB/CAP PO ONE (20:12)
[2025-01-28] MEDS: TICAGRELOR 90 MG TABLET PO SCH (20:12)
[2025-01-28] MEDS: HEPARIN/D5W 25,000 UNIT/500 ML BAG IV SCH (21:56)
--- NOTE | 2025-01-28 22:02 | CON ---
Reason For Consultation: Chest pain. History Of Present Illness: A 49-year-old male, no past medical history, heavy smoker 2 packs per da y, presented with severe pressure-like chest pain along with nausea, pain radiates to the neck and le ft upper extremity. After evaluation in the emergency room with some pain management, pain resolved. Upon time of my evaluation, there was no chest pain any further. Past Medical History: None. Medications: Refer to reconciliation sheet for detailed list. Allergies: PENICILLIN. Family History: No premature coronary artery disease or cancer. Social History: Smokes 2 packs per day. Does not drink or use any drugs. Review of Systems: All systems reviewed and they were negative except as mentioned in the HPI. Physical Examination: Vital Signs: Reviewed. Head and Neck: Pupils are equal, reactive to light. Intact eye movements. No JVD. No cervical lym phadenopathy. Neck is supple. Thyroid is not enlarged. Lungs: Clear to auscultation bilaterally. No rhonchi, wheezing, or crackles. Abdomen: Soft, nontender. Bowel sounds positive. No organomegaly. No masses or hernia. No rigidi ty or rebound. Extremities: No edema, clubbing, or cyanosis. Intact pulses. Skin: No rash. No nodules. Neuro: Alert, awake, and oriented x3. No acute focal deficits appreciated. Heart: Regular rate and rhythm. No extra sounds. Investigations: Troponin 135. BUN is 16, creatinine 0.8. Hemoglobin is 15.6. Assessment/recommendations: 1. Acute non-ST elevation myocardial infarction, very typical symptoms and slightly elevated troponin . Keep n.p.o. He received aspirin and Plavix, and he is on heparin drip. Take to the recyclable products sorter caroline rgently. This is likely [id number]-[id number] myocardial infarction. Further recommendation will follow after the heart catheterization. Discussed in details the condition with the patient and the patien t's family and the ER physician. 2. Smoker, heavy, 2 packs per day. Recommend smoking cessation. 3. Dyslipidemia. Lipitor 40 mg at bedtime, baby aspirin, heparin drip. Pending heart catheterizatio nHemalatha COY/PAYTONL Voice ID: [id number] Report ID: [id number]
[2025-01-29 02:44] LABS: Magnesium 2.1 mg/dL (1.6-2.4); NT PRO-BNP 430.0 pg/mL (<125)
[2025-01-29 07:20] LABS: Absolute Lymphocytes (CBC) 1.3 K/uL (0.7-4.9); Hematocrit 42.8 % (39.6-49.0); Hemoglobin 15.1 g/dL (13.6-17.9); MCH 32.5 pg (27.0-35.0); MCHC 35.2 g/dL (32.0-36.0); MCV 92.4 fL (80-100); MPV 7.3 fL (7.6-11.3); Nucleated RBC Absolute Count 0.0 (0-0); Nucleated Red Blood Cells % 0.0 % (0-0); RBC Red Blood Cell Count 4.63 M/uL (4.33-5.43); White Blood Count 8.00 thou/uL (4.3-10.9)
[2025-01-29 07:41] LABS: Anion Gap 9.7 mEq/L (5.0-15.0); BUN Blood Urea Nitrogen 10.0 mg/dL (7-18); Glucose Level 119.0 mg/dL (74-106); HDL Cholesterol 49.0 mg/dL (40-60); LDL Cholesterol, Calculated 154.0 mg/dL (<130); LDL Cholesterol,Calc NonReport 154.0; Potassium 3.7 mEq/L (3.5-5.1)
[2025-01-29] MEDS: ASPIRIN EC 81 MG TAB PO SCH (08:56)
[2025-01-29] MEDS: POTASSIUM CL SA 10 MEQ TAB PO ONE (09:00)
[2025-01-29] MEDS: POTASSIUM CL SA 10 MEQ TAB PO SCH (09:27)
[2025-01-29] MEDS ORDERED: NA CHLORIDE 0.9% 1,000 ML ONE (09:57)
--- NOTE | 2025-01-29 10:44 | P.PN ---
Subjective Date of Service: 01/29/25 Chief Complaint: chest pain Subjective: Improving (Patient is status post PCI. Cardiology recommends another day of heparin infusion after blood was found during angiogram.) Physical Examination - Vital Signs Temperature: 97.5 F Blood Pressure: 131/92 Pulse: 79 Respirations: 24 Pulse Ox (%): 97 - Physical Exam General: Alert, In no apparent distress, Cooperative HEENT: Atraumatic, Normocephalic Respiratory: Clear to auscultation bilaterally, Normal air movement Cardiovascular: No edema, Normal pulses, Regular rate/rhythm, Normal S1 S2 Neurological: Normal speech - Studies Laboratory Data (last 24 hrs) 01/28/25 01/28/25 01/28/25 11:42 11:42 11:42 WBC 9.60 Hgb 15.6 Hct 45.2 Plt Count 292 APTT 32.5 Sodium 139 Potassium 3.8 BUN 16 Creatinine 0.80 Glucose 98 Assessment And Plan - Plan Assessment 49-year-old with a past medical history of tobacco smoking being admitted for NSTEMI after presented with chest pain. His first troponin was 139. EKG revealed ST depression from V3-V5. Cardiology has been notified and is planning to take the patient to the [facility]. NSTEMI Hyperlipidemia Tobacco smoking Plan: Patient is status post PCI Currently on heparin drip for intra coronary clot Cardiology recommends 1 more day of heparin infusion He can be downgraded to telemetry Continue dual antiplatelet therapy and high intensity statin Follow 2D echo Possible discharge tomorrow
[2025-01-29] MEDS ORDERED: CROTALIDAE ANTIVENIM 1 GM VIAL IV ONE (12:43)
[2025-01-29] MEDS: DIPHENHYDRAMINE PO SCH (17:53)
[2025-01-29] MEDS: [UNRECOGNIZED DRUG - OTHER] PO SCH (17:53)
[2025-01-29] MEDS: ACETAMINOPHEN PO SCH (17:53)
[2025-01-29] MEDS: DIPHENHYDRAMINE 25 MG TAB/CAP PO ONE (19:58)
[2025-01-30 05:58] LABS: Anion Gap 9.5 mEq/L (5.0-15.0); BUN Blood Urea Nitrogen 11.0 mg/dL (7-18); Glucose Level 131.0 mg/dL (74-106); Potassium 3.5 mEq/L (3.5-5.1)
[2025-01-30] MEDS: POTASSIUM CL SA 10 MEQ TAB PO ONE (08:07)
[2025-01-30 11:59] VITALS: O2SAT 99
--- NOTE | 2025-01-30 15:37 | P.DS ---
Admission Date: 01/28/25 Discharge Date: 01/30/25 Disposition: ROUTINE DISCHARGE Discharge Condition: GOOD Reason for Admission: chest pain Brief History of Present Illness: Patient is a 57-year-old male who presented to the left-sided chest pain that started 20 minutes prior to admission. He has no significant past medical history except he smokes 2 pack of cigarettes a day. Patient was taken to Transplant Coordinator shortly after presentation for NSTEMI. Hospital Course: Patient underwent PCI with 2 stent placed in LAD. He stayed in the hospital for heparin infusion. He has not been cleared by cardiology for discharge. He is going to be discharged on dual antiplatelet therapy and high intensity statin. Vital Signs/Physical Exam: Temp Pulse Resp BP Pulse Ox 97.7 F 88 17 146/94 H 99 01/30/25 12:00 01/30/25 12:00 01/30/25 12:00 01/30/25 12:00 01/30/25 12:00 General: Alert, In no apparent distress, Cooperative HEENT: Atraumatic, Normocephalic Respiratory: Clear to auscultation bilaterally, Normal air movement Cardiovascular: No edema, Normal pulses, Regular rate/rhythm, Normal S1 S2 Neurological: Normal speech Laboratory Data at Discharge: WBC 8.00 thou/uL (4.3-10.9) 01/29/25 06:49 Hgb 15.1 g/dL (13.6-17.9) 01/29/25 06:49 Hct 42.8 % (39.6-49.0) 01/29/25 06:49 Plt Count 267 thou/uL (152-406) 01/29/25 06:49 APTT 62.4 SECONDS (27.2-37.4) H 01/30/25 06:45 Sodium 143 mEq/L (136-145) 01/30/25 05:25 Potassium 3.5 mEq/L (3.5-5.1) 01/30/25 05:25 BUN 11 mg/dL (7-18) 01/30/25 05:25 Creatinine 0.62 mg/dL (0.70-1.30) L 01/30/25 05:25 Glucose 131 mg/dL (74-106) H 01/30/25 05:25 Phosphorus 3.0 mg/dL (2.5-4.9) 01/29/25 02:00 Magnesium 2.1 mg/dL (1.6-2.4) 01/29/25 02:00 Triglycerides 100 mg/dL (<150) 01/29/25 06:49 Cholesterol 223 mg/dL (<200) H 01/29/25 06:49 HDL Cholesterol 49 mg/dL (40-60) 01/29/25 06:49 Cholesterol/HDL Ratio 4.55 01/29/25 06:49 Home Medications: Acetaminophen/Diphenhydramine [Tylenol Pm Exstr 500-25Mg Cplt] 2 tab PO BID 6AM 6PM 01/28/25 Aspirin [Aspirin EC 81 MG] 81 mg PO DAILY #30 tab 01/30/25 Atorvastatin Calcium [Lipitor] 80 mg PO BEDTIME #30 tab 01/30/25 Clopidogrel Bisulfate [Plavix] 75 mg PO DAILY #30 tab 01/30/25 Nitroglycerin [Nitrostat*] 0.4 mg SL UD PRN #90 tab 01/30/25 New Medications: Aspirin [Aspirin EC 81 MG] 81 mg PO DAILY #30 tab Atorvastatin Calcium [Lipitor] 80 mg PO BEDTIME #30 tab Nitroglycerin [Nitrostat*] 0.4 mg SL UD PRN #90 tab PRN Reason: Pain Scale 2-4 (Mild) Clopidogrel Bisulfate [Plavix] 75 mg PO DAILY #30 tab Followup: NONE,NONE [Primary Care Provider] -
[2025-01-30 16:13] VITALS: BP 151/91; TEMP 97.4
[2025-01-30] MEDS: CLOPIDOGREL 75 MG TABLET PO ONE (16:16)
== END 2025-01-30 16:34 | disposition home or self-care (01) | DRG 322 ==
LOC: ER 10:51 → ERHOLD 14:14 → 3RD-ICU 16:02 → 4TH 01-29 14:28
PROVIDERS: ADMIT Internal Medicine; ATTEND Internal Medicine
PROC: 027034Z Dilation of Coronary Artery, One Artery with Drug-eluting Intraluminal Device, Percutaneous Approach (ICD-10-PCS; principal; 2025-01-28)
PROC: B210YZZ Fluoroscopy of Single Coronary Artery using Other Contrast (ICD-10-PCS; 2025-01-28)
DX: I21.4 Non-ST elevation (NSTEMI) myocardial infarction (principal); K57.92 Diverticulitis of intestine, part unspecified, without perforation or abscess without bleeding; F17.210 Nicotine dependence, cigarettes, uncomplicated; Z88.0 Allergy status to penicillin; E78.5 Hyperlipidemia, unspecified; Z79.02 Long term (current) use of antithrombotics/antiplatelets
CPT/HCPCS: 36415; 71045; 76937; 80048; 80061; 82550; 82947; 83735; 83880; 84100; 84484; 85025; 85347; 85730; 92928; 93458; 96365; 96366; 96375; 99285; C1725; C1893; J0461; J0840; J1644; J2250; J2405; J3010; J7030; J7040; Q9966